=== PATIENT | female | born 1975 | race Caucasian/White ===

== ENCOUNTER 2016-05-09 18:23 | Emergency (ER) | payer OTHER ==
[2016-05-09 18:40] VITALS: BP 147/91; PULSE 90; TEMP 97.7; BMI 41.5
--- NOTE | 2016-05-09 19:36 | PDOC ---
History of Present Illness - General Chief Complaint: Sore Throat Stated Complaint: ASTHMA/SORE THROAT/CHEST TIGHTNESS Time Seen by Provider: 05/09/16 18:55 History Source: Patient Exam Limitations: No Limitations - History of Present Illness Initial Comments: 05/09/16 19:31 41-year-old female with history of asthma comes to the ER today with complaints of intermittent wheezing, cough, sore throat, and rib pain secondary to coughing. Patient states has been using her inhaler and treatment as needed but states symptoms continue shortly after usage. She denies fever, chills, shortness of breath, recent travel, recent illness, recent vaccinations, headache, abdominal pain or nausea. Patient denies smoking history or smokers in the home. Timing/Duration: reports: other (3 days) Severity: reports: mild, moderate Possible Cause: Yes: occasional episodes Modifying Factors: improves with: albuterol inhaler, albuterol nebulizer, coughing Associated Symptoms: reports: cough, sore throat, wheezing Past History - Past Medical History Allergies/Adverse Reactions: Allergies Allergy/AdvReac Type Severity Reaction Status Date / Time gatifloxacin [From Tequin] Allergy Verified 05/09/16 18:40 Home Medications: Ambulatory Orders Hydroxychloroquine Sulfate [Plaquenil] 200 mg PO DAILY 05/15/15 Albuterol 0.083% Nebulizer Mattie [Ventolin 0.083% Nebulizer Soln -] 1 neb NEB Q4H #60 vial 10/20/15 Albuterol Sulfate Inhaler - [Ventolin HFA Inhaler -] 1 - 2 inh PO Q4H #1 inhaler 01/02/16 Budesonide/Formeterol Fumarate [SYMBICORT 160/4.5mcg -] 1 inh PO DAILY #1 cannister 01/02/16 Prednisone [Deltasone -] 20 mg PO BID #10 tablet 01/02/16 Azithromycin [Zithromax Tri-Wenceslao (3 DAYS) -] 500 mg PO DAILY #3 tablet 05/09/16 Prednisone [Deltasone -] 40 mg PO DAILY #8 tablet 05/09/16 Asthma: Yes Diabetes: No Other medical history: LUPUS - Immunization History Immunization Up to Date: Yes - Psycho/Social/Smoking Cessation Hx Anxiety: No Suicidal Ideation: No Smoking History: Never smoked Have you smoked in the past 12 months: No Hx Alcohol Use: No Drug/Substance Use Hx: No Substance Use Type: None Patient Lives Alone: No Lives with/in: spouse/SO Respiratory Specific PMHX - Complaint Specific PMHX Angina: No Bronchitis: Yes Pulmonary Embolus: No TB (Tuberculosis): No Review of Systems - Review of Systems Able to Perform ROS?: Yes Constitutional: No: Symptoms Reported HEENTM: Yes: Throat Pain Respiratory: Yes: Cough, Wheezing Cardiac (ROS): No: Symptoms Reported ABD/GI: No: Symptoms Reported : No: Symptoms Reported Musculoskeletal: No: Symptoms Reported Integumentary: No: Symptoms Reported Neurological: No: Symptoms reported *Physical Exam - Vital Signs Last Vital Signs Temp Pulse Resp BP Pulse Ox 97.7 F 90 20 147/91 99 05/09/16 18:38 05/09/16 18:38 05/09/16 18:38 05/09/16 18:38 05/09/16 18:38 - Physical Exam General Appearance: Yes: Nourished, Appropriately Dressed. No: Apparent Distress HEENT: positive: EOMI, MARNIE, TMs Normal, Pharynx Normal. negative: Pale Conjunctivae, Pharyngeal Erythema Neck: positive: Supple Respiratory/Chest: positive: Wheezing (mild expiratory to bronchial region). negative: Respiratory Distress, Accessory Muscle Use Cardiovascular: positive: Regular Rhythm, Regular Rate. negative: Murmur Gastrointestinal/Abdominal: positive: Soft. negative: Tenderness Extremity: positive: Normal Capillary Refill Integumentary: positive: Normal Color, Warm, Moist Neurologic: positive: Motor Strength 5/5 (ambulatory) Medical Decision Making - Medical Decision Making 05/09/16 19:33 Patient with history of asthma presents with wheezing, cough and sore throat. Patient with likely acute wheezy bronchitis/asthma exacerbation. Patient be discharged home with azithromycin and prednisone since she has adequate supply of albuterol at home. *DC/Admit/Observation/Transfer Diagnosis at time of Disposition: Acute wheezy bronchitis Asthma Qualifiers: Asthma severity: mild intermittent Asthma complication type: with acute exacerbation Qualified Code(s): J45.21 - Mild intermittent asthma with (acute) exacerbation - Discharge Dispostion Disposition: HOME Condition at time of disposition: Good - Prescriptions Prescriptions: Prednisone [Deltasone -] 40 mg PO DAILY #8 tablet Azithromycin [Zithromax Tri-Wenceslao (3 DAYS) -] 500 mg PO DAILY #3 tablet - Referrals Referrals: Deni Blakely MD [Primary Care Provider] - - Patient Instructions Printed Discharge Instructions: DI for Acute Bronchitis, DI for Asthma -- Adult Additional Instructions: Please take azithromycin and prednisone as prescribed until completed. Please use your inhaler as needed. Follow-up with your PCP. Otherwise return to ED if symptoms worsen
== END 2016-05-09 19:41 | disposition home or self-care (01) ==
LOC: JERFT 18:23
DX: J45.21 Mild intermittent asthma with (acute) exacerbation (principal); J20.9 Acute bronchitis, unspecified
CPT/HCPCS: 99281-25

== ENCOUNTER 2016-06-29 18:31 | Emergency (ER) | payer OTHER ==
[2016-06-29 18:34] VITALS: BP 142/73; PULSE 79; TEMP 97.9; BMI 44.6
--- NOTE | 2016-06-29 18:39 | PDOC ---
Rapid Medical Evaluation Chief Complaint: Sore Throat Time Seen by Provider: 06/29/16 18:37 Medical Evaluation: Allergies Allergy/AdvReac Type Severity Reaction Status Date / Time gatifloxacin [From Tequin] Allergy Verified 06/29/16 18:32 Vital Signs Temp Pulse Resp BP Pulse Ox 97.9 F 79 18 142/73 100 06/29/16 18:33 06/29/16 18:33 06/29/16 18:33 06/29/16 18:33 06/29/16 18:33 06/29/16 18:38 41 year old female with a history of asthma, c/s x 1 presenting with sore throat since yesterday. V/s unremarkable. -Rapid strepo FT for further evaluation
[2016-06-29] MEDS ORDERED: ALBUTEROL SO4 2.5/IPRATROPIUM 0.5 INH SOL 3 ML VIAL.NEB. NEB ONE (19:05)
--- NOTE | 2016-06-29 19:09 | PDOC ---
History of Present Illness - General Chief Complaint: Sore Throat Stated Complaint: SORE THROAT Time Seen by Provider: 06/29/16 18:37 History Source: Patient Exam Limitations: No Limitations - History of Present Illness Initial Comments: 06/29/16 19:05 My chief complaint sore throat radiates slightly to her left ear dry cough since last night History of present illness: Patient is a 41-year-old female with a history of asthma here complaining of sore throat since last night that radiates slightly to her left ear with a dry cough. Patient denies any shortness of breath or wheezing however patient was wheezing in exam room and patient then was able to feel and hear the wheezing. Patient denies being around anyone sick. Patient denies any fever or any difficulty swallowing or breathing. 06/29/16 19:08 06/29/16 20:01 Timing/Duration: intermittent Severity: mild Associated Symptoms: reports: cough (dry ), other (sore throat). denies: chest pain, shortness of breath Past History - Past Medical History Allergies/Adverse Reactions: Allergies Allergy/AdvReac Type Severity Reaction Status Date / Time gatifloxacin [From Tequin] Allergy Verified 06/29/16 18:32 Home Medications: Ambulatory Orders Hydroxychloroquine Sulfate [Plaquenil] 200 mg PO DAILY 05/15/15 Albuterol 0.083% Nebulizer Mattie [Ventolin 0.083% Nebulizer Soln -] 1 neb NEB Q4H #60 vial 10/20/15 Albuterol Sulfate Inhaler - [Ventolin HFA Inhaler -] 1 - 2 inh PO Q4H #1 inhaler 01/02/16 Budesonide/Formeterol Fumarate [SYMBICORT 160/4.5mcg -] 1 inh PO DAILY #1 cannister 01/02/16 Prednisone [Deltasone -] 20 mg PO BID #10 tablet 01/02/16 Azithromycin [Zithromax Tri-Wenceslao (3 DAYS) -] 500 mg PO DAILY #3 tablet 05/09/16 Prednisone [Deltasone -] 40 mg PO DAILY #8 tablet 05/09/16 Asthma: Yes Diabetes: No - Immunization History Immunization Up to Date: Yes - Psycho/Social/Smoking Cessation Hx Anxiety: No Suicidal Ideation: No Smoking History: Never smoked Have you smoked in the past 12 months: No Information on smoking cessation initiated: No Hx Alcohol Use: No Drug/Substance Use Hx: No Substance Use Type: None Review of Systems - Review of Systems Able to Perform ROS?: Yes Constitutional: No: Symptoms Reported HEENTM: Yes: Ear Pain (left ear ), Throat Pain Respiratory: Yes: Cough, Wheezing (now left sided ). No: Shortness of Breath, SOB with Exertion, SOB at Rest, Stridor, Productive cough Cardiac (ROS): No: Symptoms Reported ABD/GI: No: Symptoms Reported : No: Symptoms Reported Musculoskeletal: No: Symptoms Reported Integumentary: No: Symptoms Reported Neurological: No: Symptoms reported *Physical Exam - Vital Signs Last Vital Signs Temp Pulse Resp BP Pulse Ox 97.9 F 79 18 142/73 100 06/29/16 18:33 06/29/16 18:33 06/29/16 18:33 06/29/16 18:33 06/29/16 18:33 - Physical Exam General Appearance: Yes: Appropriately Dressed HEENT: positive: TMs Normal, Pharyngeal Erythema, Tonsillar Erythema (with no tonsillar uvular deviation ). negative: Nasal Congestion, Rhinorrhea, Sinus Tenderness, Orbits Neck: positive: Lymphadenopathy (L). negative: Lymphadenopathy (R) Respiratory/Chest: positive: Lungs Clear, Normal Breath Sounds (rt. sided, ), Wheezing (slight expiratory wheeze left sided ), Other (lungs CTA b/l after neb) . negative: Chest Tender, Respiratory Distress, Decreased Breath Sounds, Crackles, Rales, Rhonchi, Stridor Cardiovascular: positive: Regular Rhythm, Regular Rate, S1, S2 Integumentary: positive: Normal Color Neurologic: positive: Alert, Responsive Medical Decision Making - Medical Decision Making 06/29/16 19:09 Patient is a 41-year-old female with a history of asthma here complaining of sore throat since last night that radiates slightly to her left ear with a dry cough. Patient denies any shortness of breath or wheezing however patient was wheezing in exam room and patient then was able to feel and hear the wheezing. Patient denies being around anyone sick. Patient denies any fever or any difficulty swallowing or breathing. 06/29/16 19:0 Pharyngitis, tonsillitis rule out strep throat Left sided wheeze expiratory asthma exacerbation Dry cough Plan: DuoNeb Throat C&S rapid negative 06/29/16 20:01 *DC/Admit/Observation/Transfer Diagnosis at time of Disposition: Asthma exacerbation Pharyngitis Qualifiers: Pharyngitis/tonsillitis etiology: unspecified etiology Qualified Code(s): J02.9 - Acute pharyngitis, unspecified - Discharge Dispostion Disposition: HOME Condition at time of disposition: Stable - Referrals Referrals: Deni Blakely MD [Primary Care Provider] - - Patient Instructions Additional Instructions: Follow up with your primary care provider within the next few days use your nebulizer as previously ordered You may purchase Cepacol throat lozengers you may purchase [id number] and use as directed Return to emergency room if symptoms worsen any difficulty breathing or swallowing Patient voiced understanding of discharge instructions and all questions were answered
== END 2016-06-29 20:29 | disposition home or self-care (01) ==
LOC: JERFT 18:31
PROC: 3E0F7GC Introduction of Other Therapeutic Substance into Respiratory Tract, Via Natural or Artificial Opening (ICD-10-PCS; principal; 2016-06-29)
DX: J45.901 Unspecified asthma with (acute) exacerbation (principal); J02.9 Acute pharyngitis, unspecified
CPT/HCPCS: 87070; 87430; 94640; 99281-25

== ENCOUNTER 2016-10-31 16:30 | Emergency (ER) | payer OTHER ==
[2016-10-31 16:35] VITALS: BP 140/79; PULSE 78; TEMP 98.4; BMI 43.7
--- NOTE | 2016-10-31 17:43 | PDOC ---
History of Present Illness - General Chief Complaint: Cold Symptoms Stated Complaint: COLD SYMPTOMS Time Seen by Provider: 10/31/16 17:13 - History of Present Illness Initial Comments: 10/31/16 17:36 CHIEF COMPLAINT: HISTORY OF PRESENT ILLNESS: 41 yo F with hx of lupus presents to [facility] with cough x 3 days and sore throat. No recent travel or sick contacts. PAST MEDICAL HISTORY: Denies past medical history FAMILY HISTORY: Denies SOCIAL HISTORY: Denies tobacco, alcohol, illicit drug use. SURGICAL HISTORY: Denies ALLERGIES: gatifloxacin REVIEW OF SYSTEMS General/Constitutional: Denies fever or chills. Denies weakness, weight change. HEENT: Denies change in vision. Denies ear pain or discharge. Denies sore throat. Cardiovascular: Denies chest pain or shortness of breath. Respiratory: Cough x 3 days with "green stuff." Gastrointestinal: Denies nausea, vomiting, diarrhea. Musculoskeletal: Denies joint or muscle swelling or pain. Denies neck or back pain. Skin and breasts: Denies rash. Neurologic: Denies headache, vertigo, loss of consciousness, or loss of sensation. PHYSICAL EXAM General Appearance: Well-appearing, appropriately dressed. No apparent distress. HEENT: EOMI, PERRLA, normal ENT inspection, normal voice, TMs normal, pharynx normal. No conjunctival pallor. No photophobia, scleral icterus. Neck: Supple. Trachea midline. No tenderness, rigidity, carotid bruit, stridor , lymphadenopathy, or thyromegaly. Respiratory/Chest: Lungs CTAB. Cardiovascular: RRR. S1, S2. No JVD, murmur, bradycardia, tachycardia. Vascular Pulses: Dorsalis-Pedis (R): 2+, Dorsalis-Pedis (L): 2+ Gastrointestinal/Abdominal: Normal bowel sounds. Abdomen soft, non-distended. No tenderness or rebound tenderness. No organomegaly, pulsatile mass, guarding , hernia, hepatomegaly, splenomegaly. Lymphatic: No adenopathy, tenderness. Musculoskeletal/Extremities: Normal inspection. FROM of all extremities, normal capillary refill. Pelvis Stable. No CVA tenderness. No tenderness to extremities, pedal edema, swelling, erythema or deformity. Integumentary: Appropriate color, dry, warm. No cyanosis, erythema, jaundice or rash Neurologic: tufting supervisor II-XII intact. Fully oriented, alert. Appropriate mood/affect. Motor strength 5/5. No appreciable EOM palsy, facial droop or sensory deficit. Past History - Past Medical History Allergies/Adverse Reactions: Allergies Allergy/AdvReac Type Severity Reaction Status Date / Time gatifloxacin [From Tequin] Allergy Verified 10/31/16 16:35 Home Medications: Ambulatory Orders Dextromethorphan HBr [Robitussin] 15 mg PO Q6H PRN #28 capsule 10/31/16 Guaifenesin/Codeine Phosphate [Cheratussin AC Syrup] 15 ml PO HS PRN #118 ml MDD 15ml 10/31/16 Phenol/Glycerin [Chloraseptic Max [place]] 2 spray MM Q4H PRN #1 bottle 10/31/16 Asthma: Yes Diabetes: No Other medical history: LUPUS - Immunization History Immunization Up to Date: Yes - Psycho/Social/Smoking Cessation Hx Anxiety: No Suicidal Ideation: No Smoking History: Never smoked Have you smoked in the past 12 months: No Information on smoking cessation initiated: No Hx Alcohol Use: No Drug/Substance Use Hx: No Substance Use Type: None Respiratory Specific PMHX - Complaint Specific PMHX Angina: No Bronchitis: Yes Pulmonary Embolus: No TB (Tuberculosis): No *Physical Exam - Vital Signs Last Vital Signs Temp Pulse Resp BP Pulse Ox 98.4 F 78 18 140/79 98 10/31/16 16:32 10/31/16 16:32 10/31/16 16:32 10/31/16 16:32 10/31/16 16:32 Medical Decision Making - Medical Decision Making 10/31/16 17:39 41 yo F with hx of lupus presents to [facility] w/ cough x 3 days. Clinical presentation consistent with viral bronchitis. -Cheratussin sent to pharm -Chloraseptic spray *DC/Admit/Observation/Transfer Diagnosis at time of Disposition: Bronchitis - Discharge Dispostion Disposition: HOME Condition at time of disposition: Stable Admit: No - Prescriptions Prescriptions: Guaifenesin/Codeine Phosphate [Cheratussin AC Syrup] 15 ml PO HS PRN #118 ml MDD 15ml PRN Reason: Cough Phenol/Glycerin [Chloraseptic Max [place]] 2 spray MM Q4H PRN #1 bottle PRN Reason: throat pain Dextromethorphan HBr [Robitussin] 15 mg PO Q6H PRN #28 capsule PRN Reason: Cough - Referrals Referrals: Isis Acosta [Primary Care Provider] - - Patient Instructions Printed Discharge Instructions: DI for Acute Bronchitis Additional Instructions: Please take medications as prescribed. Follow up with your primary care doctor if symptoms persist past 5 days. If you experience any fever, vomiting, diarrhea, chills, neck stiffness, or any new or worsening symptoms, please return to the ER. - Post Discharge Activity
== END 2016-10-31 18:14 | disposition home or self-care (01) ==
LOC: JERFT 16:30
DX: J20.8 Acute bronchitis due to other specified organisms (principal); J45.909 Unspecified asthma, uncomplicated
CPT/HCPCS: 99281-25

== ENCOUNTER 2016-11-09 12:33 | Emergency (ER) | payer OTHER ==
[2016-11-09 12:46] VITALS: BP 131/77; PULSE 81; TEMP 98.1; BMI 43.2
--- NOTE | 2016-11-09 13:21 | PDOC ---
History of Present Illness - General History Source: Patient Exam Limitations: No Limitations - History of Present Illness Initial Comments: 11/09/16 13:28 The patient is a 41 year old female with a significant past medical history of asthma and lupus with no recent flare ups who presents to the ED with a continual cough and congestion to the mid chest for a week. Patient denies fever or chills. Denies recent travel. Patient reports recent illness and was seen in the ED 1 week for present symptoms. She states her chest congestion and cough is not improving after receiving cough medicine. Patient notes she did not follow up with her PCP, Dr. Isis Tenorio. She reports using her inhaler with relief of present symptoms. <Summer Benavides - Last Filed: 11/09/16 13:39> <Amrita Jackson - Last Filed: 11/09/16 13:47> - General Chief Complaint: Cold Symptoms Stated Complaint: CONGESTED Time Seen by Provider: 11/09/16 13:10 Past History <Summer Benavides - Last Filed: 11/09/16 13:39> - Past Medical History Asthma: Yes Diabetes: No - Immunization History Immunization Up to Date: Yes - Psycho/Social/Smoking Cessation Hx Anxiety: No Suicidal Ideation: No Smoking History: Current some day smoker Have you smoked in the past 12 months: No Number of Cigarettes Smoked Daily: 0 Information on smoking cessation initiated: No Hx Alcohol Use: No Drug/Substance Use Hx: No Substance Use Type: Marijuana <Amrita Jackson - Last Filed: 11/09/16 13:47> - Past Medical History Allergies/Adverse Reactions: Allergies Allergy/AdvReac Type Severity Reaction Status Date / Time gatifloxacin [From Tequin] Allergy Verified 11/09/16 12:46 Home Medications: Ambulatory Orders Dextromethorphan HBr [Robitussin] 15 mg PO Q6H PRN #28 capsule 10/31/16 Guaifenesin/Codeine Phosphate [Cheratussin AC Syrup] 15 ml PO HS PRN #118 ml MDD 15ml 10/31/16 Phenol/Glycerin [Chloraseptic Max [place]] 2 spray MM Q4H PRN #1 bottle 10/31/16 Respiratory Specific PMHX - Complaint Specific PMHX Angina: No Bronchitis: Yes Pulmonary Embolus: No TB (Tuberculosis): No <Amrita Jackson - Last Filed: 11/09/16 13:47> Review of Systems - Review of Systems Respiratory: Yes: Cough, Productive cough, Other (chest congestion ) <Summer Benavides - Last Filed: 11/09/16 13:39> - Review of Systems Constitutional: No: Symptoms Reported HEENTM: No: Throat Pain, Difficulty Swallowing Respiratory: Yes: Cough, Productive cough. No: Orthopnea, Shortness of Breath, Wheezing Cardiac (ROS): No: Chest Pain, Edema ABD/GI: No: Nausea Integumentary: No: Symptoms Reported Neurological: No: Headache <Amrita Jackson - Last Filed: 11/09/16 13:47> *Physical Exam - Vital Signs Last Vital Signs Temp Pulse Resp BP Pulse Ox 98.1 F 81 18 131/77 99 11/09/16 12:39 11/09/16 12:39 11/09/16 12:39 11/09/16 12:39 11/09/16 12:39 - Physical Exam Comments: 11/09/16 13:28 GENERAL: Well developed, well nourished. Awake and alert. No acute distress. HEENT:no erythema, no exudates, 2+ tonsils Normocephalic, atraumatic. EOMI. No conjunctival pallor. Sclera are non- icteric. Moist mucous membranes. . NECK: Supple. Full ROM. No JVD. Carotid pulses 2+ and symmetric. No thyromegaly. No lymphadenopathy. CARDIOVASCULAR: Regular rate and rhythm. No murmurs, rubs, or gallops. PULMONARY: No evidence of respiratory distress. Lungs clear to auscultation bilaterally. No wheezing, rales or rhonchi. ABDOMINAL: Soft. Non-tender. Non-distended. No rebound or guarding. No organomegaly. MUSCULOSKELETAL Normal range of motion at all joints. No bony deformities or tenderness. EXTREMITIES: No cyanosis. No clubbing. No edema. SKIN: Warm and dry. Normal capillary refill. No rashes. No jaundice. NEUROLOGICAL: Alert, awake, appropriate. Normal speech. Toes are down-going bilaterally. Gait is normal without ataxia. PSYCHIATRIC: Cooperative. Good eye contact. Appropriate mood and affect. <Summer Benavides - Last Filed: 11/09/16 13:39> - Vital Signs Last Vital Signs Temp Pulse Resp BP Pulse Ox 98.1 F 81 18 131/77 99 11/09/16 12:39 11/09/16 12:39 11/09/16 12:39 11/09/16 12:39 11/09/16 12:39 <Amrita Jackson - Last Filed: 11/09/16 13:47> Medical Decision Making - Medical Decision Making 11/09/16 13:43 Patient was seen and examined by me with dictation done by medical videographer. Patient on exam had clear lungs to auscultation without wheezing or dyspnea. Due to patient's history of lupus and history of asthma which she states uses her albuterol inhaler and her symbicort as prescribed with minimal improvement. Patient will be prescribed azithromycin along with prednisone. <Amrita Jackson - Last Filed: 11/09/16 13:47> *DC/Admit/Observation/Transfer <Summer Benavides - Last Filed: 11/09/16 13:39> <Amrita Jackson - Last Filed: 11/09/16 13:47> Diagnosis at time of Disposition: Asthmatic bronchitis Qualifiers: Asthma severity: mild intermittent Asthma complication type: with acute exacerbation Qualified Code(s): J45.21 - Mild intermittent asthma with (acute) exacerbation - Discharge Dispostion Disposition: HOME - Referrals Referrals: Isis Acosta [Primary Care Provider] - - Patient Instructions Printed Discharge Instructions: DI for Acute Bronchitis Additional Instructions: Please take medication as prescribed until completed. Please follow-up with your PCP and/or return to ED if symptoms worsen.
== END 2016-11-09 13:53 | disposition home or self-care (01) ==
LOC: JERFT 12:33
DX: J45.21 Mild intermittent asthma with (acute) exacerbation (principal); F17.210 Nicotine dependence, cigarettes, uncomplicated
CPT/HCPCS: 99281-25

== ENCOUNTER → 2016-11-21 | Emergency (ER) | payer OTHER ==
[2016-11-21 20:43] VITALS: BP 136/78; PULSE 79; TEMP 98.5; BMI 46.0
--- NOTE | 2016-11-21 21:12 | PDOC ---
Attending Attestation - [facility] HPI: 11/22/16 00:25 The patient is a 41 year old female with a significant past medical history of asthma and lupus, presenting to the Emergency Department right side chest pain s /p slip and fall last night. The patient reports that she went to shower last night while intoxicated when she slipped and fell forward. As per the patients boyfriend, the patient did not hit and corners or sharp edges, but hit the floor. The patient denies loss of consciousness or head trauma. She reports pain at her right chest and side, and abdominal pain at her RUQ which has worsened since last night. She has not taken any medication for the pain. The patient denies palpitations, or diaphoresis. Patient denies shortness of breath, or difficulty breathing. Patient denies nausea, vomiting, and diarrhea. Patient denies headache, or change in vision. Social Hx: Admits to marijuana use, and alcohol use. GENERAL/CONSTITUTIONAL: No fever or chills. No weakness. HEAD, EYES, EARS, NOSE AND THROAT: No change in vision. No ear pain or discharge. No sore throat. GASTROINTESTINAL: + RUQ pain. No nausea, vomiting, diarrhea or constipation. GENITOURINARY: No dysuria, frequency, or change in urination. CARDIOVASCULAR: + right side chest pain. No shortness of breath. RESPIRATORY: No cough, wheezing, or hemoptysis. MUSCULOSKELETAL: + right side pain. No joint or muscle swelling or pain. No neck or back pain. SKIN: No rash NEUROLOGIC: No headache, vertigo, loss of consciousness, or change in strength/ sensation. ENDOCRINE: No increased thirst. No abnormal weight change. HEMATOLOGIC/LYMPHATIC: No anemia, easy bleeding, or history of blood clots. ALLERGIC/IMMUNOLOGIC: No hives or skin allergy. - Physicial Exam PE: 11/22/16 00:33 GENERAL: Awake, alert, and fully oriented, in no acute distress HEAD: No signs of trauma EYES: PERRLA, EOMI, sclera anicteric, conjunctiva clear ENT: Auricles normal inspection, hearing grossly normal, nares patent, oropharynx clear without exudates. Moist mucosa NECK: Normal ROM, supple, no lymphadenopathy, JVD, or masses LUNGS: Mild tenderness to right lower rib margin in the mid axillary line. Breath sounds equal, clear to auscultation bilaterally. No wheezes, and no crackles HEART: Regular rate and rhythm, normal S1 and S2, no murmurs, rubs or gallops ABDOMEN: Mild epigastric pain. Soft, normoactive bowel sounds. No guarding, no rebound. No masses EXTREMITIES: Normal range of motion, no edema. No clubbing or cyanosis. No cords, erythema, or tenderness NEUROLOGICAL: Cranial nerves II through XII grossly intact. Normal speech, normal gait SKIN: Warm, Dry, normal turgor, no rashes or lesions noted. - Medical Decision Making 11/22/16 00:32 XRay of Ribs As reviewed by Dr. Sheron Vasquez Patient Name: Niyah Corrales THIS IS A PRELIMINARY REPORT FROM [facility] IMAGES: 5 EXAM DATE AND TIME: 2016-11-21 23:43:27.0 EXAM: X-RAY RIGHT RIBS No acute fracture. No right pneumothorax, hemothorax or lung contusion. Hepatomegaly. Chest XRay As reviewed by Dr. Sheron Vasquez Patient Name: Niyah Corrales THIS IS A PRELIMINARY REPORT FROM [facility] IMAGES: 3 EXAM DATE AND TIME: 2016-11-21 23:36:14.0 EXAM: X-RAY CHEST No focal lung consolidation or pleural effusions. Scattered goldy os scarring and probable calcified granulomas upper lobes. Cardiomediastinal silhouette unremarkable. Bones unremarkable. 11/22/16 00:30 Documentation prepared by Maria Victoria Alston, acting as medical coding manager for Sona Zhou MD. <Maria Victoria Alston - Last Filed: 11/22/16 00:34> - Resident Resident Name: Katy Peres - ED Attending Attestation I have performed the following: I have examined & evaluated the patient, The case was reviewed & discussed with the resident, I agree w/resident's findings & plan, Exceptions are as noted - Medical Decision Making Pt was sent for rib series, no signs of fracture. There are no signs of trauma- no ecchymosis to the skin. Will not pursue further workup. <Sona Zhou - Last Filed: 11/22/16 02:19>
--- NOTE | 2016-11-21 21:30 | PDOC ---
History of Present Illness - General Chief Complaint: Chest Pain Stated Complaint: FELL Time Seen by Provider: 11/21/16 20:47 History Source: Patient, Significant Other Exam Limitations: No Limitations - History of Present Illness Initial Comments: This is a 41 yo female with h/o SLE and asthma who presents with right lower chest and right upper abdominal pain one day s/p falling in the shower. She notes having drank a bottle of hard liquor last night and then slipping and falling in the shower. She denies hitting her head or losing consciousness, but also cannot recall the exact events of the fall, how she landed, or much of what happened for the remainder of the night. Her significant other states that he found her on the bathroom floor and helped her to bed. She awoke this morning with pain in the right ribs, right abdomen, and right upper back which is 8/10, worse with movement, constant, and feels like pressure. It does not change after she eats. She additionally hit her nose during the fall and has a small cut and nasal swelling. She denies any dizziness, headache, nausea, vomiting, diarrhea, black/bloody or white stool, sweats, radiation of the pain down an arm, blood in the urine, or burning on urination. Past History - Past Medical History Allergies/Adverse Reactions: Allergies Allergy/AdvReac Type Severity Reaction Status Date / Time gatifloxacin [From Tequin] Allergy Verified 11/21/16 20:41 Home Medications: Ambulatory Orders Albuterol Sulfate Inhaler - [Ventolin Hfa Inhaler -] 1 - 2 inh PO Q4H PRN Asthma: Yes Diabetes: No Other medical history: Lupus - Immunization History Immunization Up to Date: Yes - Psycho/Social/Smoking Cessation Hx Anxiety: No Suicidal Ideation: No Smoking History: Never smoked Have you smoked in the past 12 months: No Number of Cigarettes Smoked Daily: 0 Information on smoking cessation initiated: No Hx Alcohol Use: No Drug/Substance Use Hx: No Substance Use Type: Marijuana Review of Systems - Review of Systems Able to Perform ROS?: Yes Constitutional: No: Chills, Fever, Unexplained wgt Loss HEENTM: No: Nose Congestion, Throat Pain Respiratory: No: Cough, Shortness of Breath Cardiac (ROS): Yes: Other (left rib pain). No: Palpitations ABD/GI: Yes: Other (left upper abdominal pain). No: Constipated, Diarrhea, Nausea, Vomiting : No: Burning, Dysuria Musculoskeletal: No: Back Pain, Neck Pain Integumentary: No: Bruising, Rash Neurological: No: Headache, Numbness, Tingling, Weakness, Dizziness Endocrine: No: Unexplained Weight Gain, Unexplained Weight Loss *Physical Exam - Vital Signs Last Vital Signs Temp Pulse Resp BP Pulse Ox 98.5 F 79 20 136/78 99 11/21/16 20:41 11/21/16 20:41 11/21/16 20:41 11/21/16 20:41 11/21/16 20:41 - Physical Exam General Appearance: Yes: Nourished, Appropriately Dressed, Obese, Other ( pleasant and conversive in full sentences, accompanied by supportive-appearing partner at the bedside). No: Apparent Distress HEENT: positive: EOMI, MARNIE, Normal Voice, Hearing Grossly Normal, Other (no farmer sign, no raccoon eyes, no hemotympanum, no nasal septal hematoma, mild nasal bridge swelling bilaterallly with 1.5 cm transverse superficial laceration with scab). negative: Scleral Icterus (R), Scleral Icterus (L), Nasal Congestion Neck: positive: Trachea midline, Supple. negative: Tender, Rigid Respiratory/Chest: positive: Chest Tender (right lower costal margin from mid- clavicular line extending to mid-axillary line on the right without ecchymoses or abrasions or other lesions), Lungs Clear, Normal Breath Sounds. negative: Respiratory Distress, Crackles, Rhonchi, Stridor, Wheezing Cardiovascular: positive: Regular Rhythm, Regular Rate. negative: Murmur Gastrointestinal/Abdominal: positive: Normal Bowel Sounds, Soft. negative: Tender, Organomegaly, Pulsatile Mass, Guarding Musculoskeletal: positive: Normal Inspection. negative: Decreased Range of Motion, Vertebral Tenderness Extremity: positive: Normal Capillary Refill, Normal Inspection, Normal Range of Motion. negative: Tender, Cyanosis Integumentary: positive: Normal Color, Dry, Warm. negative: Erythema, Rash, Bruising Neurologic: positive: collection manager II-XII NML intact, Fully Oriented, Alert, Normal Mood/ Affect, Normal Response, Motor Strength 5/5, Finger to Nose (normal), Other ( normal Romberg, no pronator drift, normal gait). negative: Confused, Disoriented ED Treatment Course - LABORATORY CBC & Chemistry Diagram: 11/21/16 21:52 11/21/16 21:52 Medical Decision Making - Medical Decision Making 41 yo female presents the night after falling in the bathroom onto her right trunk. No difficulty breathing, hematuria, significant abdominal pain, obvious deformity, and no LOC. Exam without e/o trauma to HEENT or chest/abdomen. Ordered is CBCD, CMP, lipase, hCG, UA, CXR, right rib xray, Percocet for pain. Pain is well-controlled with one Percocet. hCG is negative, CBCD with mild anemia, CMP unremarkable, lipase neg. UA with 3+ blood but the patient has no CVA tenderness. CXR and right rib xray without e/o rib fracture, pneumothorax, pneumoperitoneum , etc. She is appropriate for outpatient management with NSAID use. She and her partner are comfortable with the plan for discharge home. She will take Motrin prn pain and use cold compress. They are counseled on return precautions and will return to ED for new/worse sxs. *DC/Admit/Observation/Transfer Diagnosis at time of Disposition: Rib contusion Qualifiers: Encounter type: initial encounter Laterality: right Qualified Code(s): S20.211A - Contusion of right front wall of thorax, initial encounter - Discharge Dispostion Disposition: HOME Condition at time of disposition: Stable Admit: No - Referrals Referrals: Isis Acosta [Primary Care Provider] - - Patient Instructions Printed Discharge Instructions: DI for Rib Contusion Additional Instructions: You were seen tonight for a fall and rib pain. We did basic labs to make sure that your liver and kidneys are functioning, and that your blood cell levels were normal. The laboratories were essentially normal except you are a bit anemic. We took a chest x-ray to assess your heart and lungs, and there were no abnormalities. We also took a right rib x-ray to evaluate for a rib fracture, and we did not see any fracture. We also gave you Percocet which did help your pain while you were here in the department. Please take ibuprofen 400 mg every 6 hours for the pain and swelling. You can also use a cold compress to the area. Please follow up with your regular doctor, or return to the emergency room for any difficulty breathing, blood in the urine, worsening abdominal pain , or other new/worsening symptoms. - Attestations Physician Attestion: 11/22/16 00:32 I, Dr. Katy Peres, attest that this document has been prepared under my direction and personally reviewed by me in its entirety. I further attest, that it accurately reflects all work, treatment, procedures and medical decision -making performed by me.
[2016-11-21 22:02] LABS: BASOPHIL 0.6 % (0-2.0); EOSINOPHIL 2.4 % (0-4.5); MCH 27.4 pg (25.7-33.7); MCHC 32.6 g/dl (32.0-36.0); MEAN CELL VOLUME 84.2 fl (80-96); NEUTROPHILS 60.6 % (42.8-82.8); PLATELET COUNT 186 K/MM3 (134-434); RDW 15.5 % (11.6-15.6)
[2016-11-21 22:07] LABS: PH,URINE 6.5 (5.0-8.0); URINE APPEARANCE CLEAR; URINE BILIRUBIN NEGATIVE (NEGATIVE); URINE BLOOD 3+ (NEGATIVE); URINE COLOR LT. YELLOW; URINE GLUCOSE (UA) NEGATIVE (NEGATIVE); URINE KETONE NEGATIVE (NEGATIVE); URINE LEUK ESTERASE NEGATIVE (NEGATIVE); URINE NITRITE NEGATIVE (NEGATIVE); URINE PROTEIN NEGATIVE (NEGATIVE); URINE UROBILINOGEN 0.2 mg/dL (0.2-1.0)
[2016-11-21 22:10] LABS: URINE MUCUS RARE; URINE RBC 10 /hpf (0-3); URINE WBC 1 /hpf (3-5)
[2016-11-21 22:25] LABS: ANION GAP 5 (8-16); BILIRUBIN,TOTAL 0.4 mg/dL (0.2-1.0); CALCIUM 8.2 mg/dL (8.5-10.1); CO2 30 mmol/L (21-32); GLUCOSE,RANDOM 98 mg/dL (74-106); SGOT/AST 20 U/L (15-37); SGPT/ALT 28 U/L (12-78); TOT PROT 7.2 g/dl (6.4-8.2)
[2016-11-21 22:26] LABS: ALK PHOS 72 U/L (45-117)
== END | disposition home or self-care (01) ==
LOC: JER 20:22
DX: S20.211A Contusion of right front wall of thorax, initial encounter (principal); W18.2XXA Fall in (into) shower or empty bathtub, initial encounter; Y93.E1 Activity, personal bathing and showering; Y92.002 Bathroom of unspecified non-institutional (private) residence as the place of occurrence of the external cause; J45.909 Unspecified asthma, uncomplicated; M32.9 Systemic lupus erythematosus, unspecified
CPT/HCPCS: 36415; 71020-TC; 71101-TC-RT; 80053; 81003; 81015; 83690; 84703; 85025; 99283-25

== ENCOUNTER 2017-01-18 02:43 | Emergency (ER) | payer OTHER ==
--- NOTE | 2017-01-18 03:23 | PDOC ---
History of Present Illness - General History Source: Patient Exam Limitations: No Limitations - History of Present Illness Initial Comments: 01/18/17 03:41 42 y/o F with a PMHx of lupus presents to the ED with left shoulder pain s/p fall. Patient reports drinking approx. 5 beers tonight. She states she tripped and fell onto her left shoulder. She subsequently experienced left shoulder pain. She states it is worse with movement. She denies any other complaints. <Ela Bruner - Last Filed: 01/18/17 03:41> <Janet Kaminski - Last Filed: 01/18/17 04:30> - General Stated Complaint: ARM PAIN Time Seen by Provider: 01/18/17 03:19 Past History <Ela Bruner - Last Filed: 01/18/17 03:41> - Past Medical History Asthma: Yes Diabetes: No - Immunization History Immunization Up to Date: Yes - Suicide/Smoking/Psychosocial Hx Smoking History: Never smoked Have you smoked in the past 12 months: No Number of Cigarettes Smoked Daily: 0 Hx Alcohol Use: No Drug/Substance Use Hx: No Substance Use Type: Marijuana <Janet Kaminski - Last Filed: 01/18/17 04:30> - Past Medical History Allergies/Adverse Reactions: Allergies Allergy/AdvReac Type Severity Reaction Status Date / Time gatifloxacin [From Tequin] Allergy Verified 01/18/17 03:32 Home Medications: Ambulatory Orders Albuterol Sulfate Inhaler - [Ventolin Hfa Inhaler -] 1 - 2 inh PO Q4H PRN Review of Systems - Review of Systems Able to Perform ROS?: Yes Comments:: 01/18/17 03:41 GENERAL/CONSTITUTIONAL: No fever or chills. No weakness. HEAD, EYES, EARS, NOSE AND THROAT: No change in vision. No ear pain or discharge. No sore throat. CARDIOVASCULAR: No chest pain or shortness of breath. RESPIRATORY: No cough, wheezing, or hemoptysis. GASTROINTESTINAL: No nausea, vomiting, diarrhea or constipation. GENITOURINARY: No dysuria, frequency, or change in urination. MUSCULOSKELETAL: (+) left shoulder pain. No neck or back pain. SKIN: No rash NEUROLOGIC: No headache, vertigo, loss of consciousness, or change in strength/ sensation. ENDOCRINE: No increased thirst. No abnormal weight change. HEMATOLOGIC/LYMPHATIC: No anemia, easy bleeding, or history of blood clots. ALLERGIC/IMMUNOLOGIC: No hives or skin allergy. <Ela Bruner - Last Filed: 01/18/17 03:41> *Physical Exam - Vital Signs Last Vital Signs Temp Pulse Resp BP Pulse Ox 98.7 F 96 H 14 112/60 97 01/18/17 03:33 01/18/17 03:33 01/18/17 03:33 01/18/17 03:33 01/18/17 03:33 - Physical Exam Comments: 01/18/17 03:42 GENERAL: Awake, alert, and fully oriented, in no acute distress HEAD: No signs of trauma EYES: PERRLA, EOMI, sclera anicteric, conjunctiva clear ENT: Auricles normal inspection, hearing grossly normal, nares patent, oropharynx clear without exudates. Moist mucosa NECK: Normal ROM, supple, no lymphadenopathy, JVD, or masses LUNGS: Breath sounds equal, clear to auscultation bilaterally. No wheezes, and no crackles HEART: Regular rate and rhythm, normal S1 and S2, no murmurs, rubs or gallops ABDOMEN: Soft, nontender, normoactive bowel sounds. No guarding, no rebound. No masses EXTREMITIES: Tenderness to anterior left shoulder. Limited active ROM. Sensation intact. Neurovascularly distal intact, no edema. No clubbing or cyanosis. No cords, erythema. NEUROLOGICAL: Cranial nerves II through XII grossly intact. Normal speech, normal gait SKIN: Warm, Dry, normal turgor, no rashes or lesions noted. <Ela Bruner A - Last Filed: 01/18/17 03:41> Medical Decision Making - Medical Decision Making 01/18/17 04:27 a/p: 42yo female with L shoulder pain after a mechanical trip and fall -limited active ROM secondary to pain. -xray L shoulder -no deformity -FROM with passive ROM 01/18/17 04:28 re-eval: no fractures seen on xray -will give sling, toradol for pain. -pt taking a cab home -suspect shoulder contusion from the fall 01/18/17 04:28 discussed imaging results with the patient. pt stable for d/c to home at this time. <Janet Kaminski - Last Filed: 01/18/17 04:30> *DC/Admit/Observation/Transfer - Attestations Scribe Attestion: 01/18/17 03:43 Documentation prepared by Ela Bruner, acting as medical educator for Janet Kaminski DO. <Ela Bruner - Last Filed: 01/18/17 03:41> - Discharge Dispostion Admit: No - Attestations Physician Attestion: 01/18/17 04:30 I, Dr. Janet Kaminski DO, attest that this document has been prepared under my direction and personally reviewed by me in its entirety. I further attest, that it accurately reflects all work, treatment, procedures and medical decision -making performed by me. <Janet Kaminski - Last Filed: 01/18/17 04:30> Diagnosis at time of Disposition: Left shoulder pain - Discharge Dispostion Disposition: HOME Condition at time of disposition: Stable - Referrals Referrals: Isis Acosta [Primary Care Provider] - Xander Dickson MD [Staff Physician] - - Patient Instructions Printed Discharge Instructions: DI for Shoulder Pain Additional Instructions: Please follow up with your PMD. Please also follow up with the orthopedist. Please return to the ED with any further complaints. Ice 20min on and 20min off for pain.
[2017-01-18 03:35] VITALS: BP 112/60; PULSE 96; TEMP 98.7; BMI 46.0
[2017-01-18] MEDS ORDERED: KETOROLAC TROMETHAMINE 60 MG/2 ML VIAL IM ONE (04:25)
[2017-01-18] MEDS ORDERED: KETOROLAC TROMETHAMINE 60 MG/2 ML VIAL ONE (04:33)
== END 2017-01-18 04:47 | disposition home or self-care (01) ==
LOC: JER 02:43
PROC: 3E0233Z Introduction of Anti-inflammatory into Muscle, Percutaneous Approach (ICD-10-PCS; principal; 2017-01-18)
DX: M25.512 Pain in left shoulder (principal); M32.9 Systemic lupus erythematosus, unspecified; J45.909 Unspecified asthma, uncomplicated; Z88.8 Allergy status to other drugs, medicaments and biological substances; W01.0XXA Fall on same level from slipping, tripping and stumbling without subsequent striking against object, initial encounter; Y93.01 Activity, walking, marching and hiking
CPT/HCPCS: 73030-TC-LT; 84703; 96372; 99281-25; 99282-25

== ENCOUNTER 2017-01-23 20:58 | Emergency (ER) | payer OTHER ==
[2017-01-23 21:40] VITALS: BP 140/83; PULSE 81; TEMP 98.1; BMI 47.0
[2017-01-23] MEDS ORDERED: ACETAMINOPHEN 325 MG TABLET (FP) PO ONE (22:23)
[2017-01-23] MEDS ORDERED: ACETAMINOPHEN 325 MG TABLET (FP) ONE (22:25)
--- NOTE | 2017-01-23 23:12 | PDOC ---
History of Present Illness - General Chief Complaint: Pain Stated Complaint: LT SHOULDER PAIN Time Seen by Provider: 01/23/17 22:14 - History of Present Illness Initial Comments: 01/23/17 23:06 CHIEF COMPLAINT: L shoulder pain HISTORY OF PRESENT ILLNESS: 42 yo F with no significant past history presents to ED with L shoulder pain. Patient states she fell two days ago and was evaluated and discharged with negative x-ray. Patient states she also has "a little hip pain now" but reports being able to walk. PAST MEDICAL HISTORY: Denies past medical history FAMILY HISTORY: Denies SOCIAL HISTORY: Denies tobacco, alcohol, illicit drug use. SURGICAL HISTORY: Denies ALLERGIES: gatifloxacin REVIEW OF SYSTEMS General/Constitutional: Denies fever or chills. Denies weakness, weight change. HEENT: Denies change in vision. Denies ear pain or discharge. Denies sore throat. Cardiovascular: Denies chest pain or shortness of breath. Respiratory: Denies cough, wheezing, or hemoptysis. Gastrointestinal: Denies nausea, vomiting, diarrhea or constipation. Denies rectal bleeding. Genitourinary: Denies dysuria, frequency, or change in urination. Musculoskeletal: Left shoulder pain with movement "feels like it gets stuck sometimes."Denies neck or back pain. PHYSICAL EXAM General Appearance: Well-appearing, appropriately dressed. No apparent distress. HEENT: EOMI, PERRLA. No conjunctival pallor. No photophobia, scleral icterus. Respiratory/Chest: Lungs CTAB. Cardiovascular: RRR. S1, S2. Gastrointestinal/Abdominal: Normal bowel sounds. Abdomen soft, non-distended. No tenderness or rebound tenderness. No organomegaly, pulsatile mass, guarding , hernia, hepatomegaly, splenomegaly. Musculoskeletal/Extremities: Full ROM to L shoulder. Patient ambulating normally. Normal inspection. FROM of all extremities, normal capillary refill. Pelvis Stable. No CVA tenderness. No tenderness to extremities, pedal edema, swelling, erythema or deformity. Integumentary: Appropriate color, dry, warm. No cyanosis, erythema, jaundice or rash Neurologic: monument carver II-XII intact. Fully oriented, alert. Appropriate mood/affect. Motor strength 5/5. No appreciable EOM palsy, facial droop or sensory deficit. Past History - Past Medical History Allergies/Adverse Reactions: Allergies Allergy/AdvReac Type Severity Reaction Status Date / Time gatifloxacin [From Tequin] Allergy Verified 01/23/17 21:30 Home Medications: Ambulatory Orders Budesonide/Formeterol Fumarate [SYMBICORT 160/4.5mcg -] 1 inh PO DAILY 01/23/17 Ibuprofen [Motrin -] 600 mg PO TID #21 tablet 01/23/17 Asthma: Yes Diabetes: No - Immunization History Immunization Up to Date: Yes - Suicide/Smoking/Psychosocial Hx Smoking History: Never smoked Have you smoked in the past 12 months: No Number of Cigarettes Smoked Daily: 0 Information on smoking cessation initiated: No Hx Alcohol Use: No Drug/Substance Use Hx: No Substance Use Type: None *Physical Exam - Vital Signs Last Vital Signs Temp Pulse Resp BP Pulse Ox 98.1 F 81 18 140/83 100 01/23/17 21:26 01/23/17 21:26 01/23/17 21:26 01/23/17 21:26 01/23/17 21:26 ED Treatment Course - RADIOLOGY Radiology Studies Ordered: Category Date Time Status SHOULDER-LEFT [RAD] Stat Radiology 01/23/17 22:37 Taken - Medications Given in the ED: ED Medications Discontinued Medications Generic Name Dose Route Start Last Admin Trade Name Freq PRN Reason Stop Dose Admin Acetaminophen 650 mg 01/23/17 22:23 01/23/17 22:30 Tylenol - PO 01/23/17 22:24 650 mg ONCE ONE Administration Medical Decision Making - Medical Decision Making 01/23/17 23:10 42 yo F with no significant past history presents to ED with L shoulder pain. -650mg Tylenol Discussed with patient risks and benefits of x-ray, patient states she does not want hip x-ray. Awaiting urine preg prior to Toradol Toradol given. *DC/Admit/Observation/Transfer Diagnosis at time of Disposition: Hip pain, left Shoulder pain, left Qualifiers: Chronicity: acute Qualified Code(s): M25.512 - Pain in left shoulder - Discharge Dispostion Disposition: HOME Condition at time of disposition: Stable Admit: No - Prescriptions Prescriptions: Ibuprofen [Motrin -] 600 mg PO TID #21 tablet - Referrals Referrals: Isis Acosta [Primary Care Provider] - Xander Dickson MD [Staff Physician] - Humphrey Rodriguez MD [Staff Physician] - - Patient Instructions Printed Discharge Instructions: DI for Shoulder Pain, Help for Hip Pain Additional Instructions: Please take medications as prescribed. Follow up with orthopedics for further evaluation of your shoulder and hip pain; as discussed you may need an MRI to evaluate for any soft tissue injury. If you develop any difficulty walking, inability to move your shoulder, or any new or worsening symptoms, please return to the ER.
[2017-01-23] MEDS ORDERED: KETOROLAC TROMETHAMINE 60 MG/2 ML VIAL IM ONE (23:15)
[2017-01-23] MEDS ORDERED: KETOROLAC TROMETHAMINE 60 MG/2 ML VIAL ONE (23:39)
== END 2017-01-23 23:43 | disposition home or self-care (01) ==
LOC: JER 20:58
PROC: 3E0233Z Introduction of Anti-inflammatory into Muscle, Percutaneous Approach (ICD-10-PCS; principal; 2017-01-23)
DX: M25.552 Pain in left hip (principal); M32.9 Systemic lupus erythematosus, unspecified; J45.909 Unspecified asthma, uncomplicated; Z88.8 Allergy status to other drugs, medicaments and biological substances; W01.0XXA Fall on same level from slipping, tripping and stumbling without subsequent striking against object, initial encounter; Y93.01 Activity, walking, marching and hiking
CPT/HCPCS: 73030-TC-LT; 84703; 96372; 99282-25

== ENCOUNTER 2017-03-01 09:29 | Emergency (ER) | payer OTHER ==
[2017-03-01 09:37] VITALS: BP 114/79; PULSE 82; TEMP 98.2; BMI 46.0
[2017-03-01 10:45] LABS: PH,URINE 5.5 (5.0-8.0); URINE APPEARANCE CLEAR; URINE BILIRUBIN NEGATIVE (NEGATIVE); URINE BLOOD 3+ (NEGATIVE); URINE COLOR LT. YELLOW; URINE GLUCOSE (UA) NEGATIVE (NEGATIVE); URINE KETONE NEGATIVE (NEGATIVE); URINE NITRITE NEGATIVE (NEGATIVE); URINE PROTEIN NEGATIVE (NEGATIVE); URINE UROBILINOGEN 0.2 mg/dL (0.2-1.0)
--- NOTE | 2017-03-01 12:19 | PDOC ---
History of Present Illness - General Chief Complaint: Urinary Problem Stated Complaint: URINARY PROBLEM Time Seen by Provider: 03/01/17 09:59 History Source: Patient Exam Limitations: No Limitations - History of Present Illness Initial Comments: 03/01/17 12:13 Patient is a 42 y/o female, morbidly obese, presents to [facility] ER with dysuria, frequency and blood in urine today. Denies back pain or history of kidney stones. No fever, reports that she has had UTI in the past with same symptoms. Scheduled for gastric bypass on Tuesday. Past Medical History: [Denies]. Allergies: No known allergies Medications: [None] Family History: Non-contributory Social History: Denies smoking, alcohol use, or IVDU Review of Systems GENERAL/CONSTITUTIONAL: [No fever or chills. No weakness. No weight change.] HEAD, EYES, EARS, NOSE AND THROAT: [No change in vision. No ear pain or discharge. No sore throat. ] CARDIOVASCULAR: [No chest pain or shortness of breath.] RESPIRATORY: [No cough, wheezing, or hemoptysis.] GASTROINTESTINAL: [No nausea, vomiting, diarrhea or constipation. No rectal bleeding.] GENITOURINARY: [+ Dysuria, frequency and hematuria. ] MUSCULOSKELETAL: [No joint or muscle swelling or pain. No neck or back pain.] SKIN : [No rash or easy bruising.] Physical Exam: GENERAL: [The patient is awake, alert, and fully oriented, in no acute distress. ] EYES: [Pupils equal, round and reactive to light, extraocular movements intact, sclera anicteric, conjunctiva clear.] ENT: [Ears normal, nares patent, oropharynx clear without exudates. Moist mucous membranes. No uvula deviation] NECK: [Normal range of motion, supple without lymphadenopathy, JVD, or masses.] LUNGS: [Breath sounds equal, clear to auscultation bilaterally. No wheezes, and no crackles.] HEART: [Regular rate and rhythm, normal S1 and S2 without murmur, rub or gallop. ] ABDOMEN: [Mid supra pubic tenderness. No guarding, no rebound. No masses. No bruising or abrasions] MUSCULOSKELETAL: [Normal range of motion, no edema. No clubbing or cyanosis. No cords, erythema, or tenderness. No CVA Tenderness with palpation] SKIN: [Warm, Dry, normal turgor, no rashes or lesions noted.] Past History - Past Medical History Allergies/Adverse Reactions: Allergies Allergy/AdvReac Type Severity Reaction Status Date / Time gatifloxacin [From Tequin] Allergy Verified 03/01/17 09:34 Home Medications: Ambulatory Orders Budesonide/Formeterol Fumarate [SYMBICORT 160/4.5mcg -] 1 inh PO DAILY 01/23/17 Nitrofurantoin Monohyd/M-Cryst [Macrobid -] 100 mg PO BID #14 capsule 03/01/17 Asthma: Yes COPD: No Diabetes: No Other medical history: LUPUS - Immunization History Immunization Up to Date: Yes - Suicide/Smoking/Psychosocial Hx Smoking History: Never smoked Have you smoked in the past 12 months: No Number of Cigarettes Smoked Daily: 0 Information on smoking cessation initiated: No Hx Alcohol Use: No Drug/Substance Use Hx: No Substance Use Type: None *Physical Exam - Vital Signs Last Vital Signs Temp Pulse Resp BP Pulse Ox 98.2 F 82 18 114/79 100 03/01/17 09:35 03/01/17 09:35 03/01/17 09:35 03/01/17 09:35 03/01/17 09:35 ED Treatment Course - ADDITIONAL ORDERS Additional order review: Laboratory Results 03/01/17 10:00 Urine Color Lt. yellow Urine Appearance Clear Urine pH 5.5 Ur Specific [place] 1.025 Urine Protein Negative Urine Glucose (UA) Negative Urine Ketones Negative Urine Blood 3+ H Urine Nitrite Negative Urine Bilirubin Negative Urine Urobilinogen 0.2 Urine HCG, Qual Negative Medical Decision Making - Medical Decision Making 03/01/17 13:04 A/P: Patient here with dysuria, and patient states her urine was "mildly blood- tinged" no gross blood. Patient without back pain, states she has urinary tract infection the past and symptoms are the same. She is scheduled for gastric bypass on Tuesday, denies any new recent sexual activity no vaginal discharge no CVA tenderness. Laboratory Results - last 24 hr 03/01/17 10:00 Urine Color Lt. yellow Urine Appearance Clear Urine pH 5.5 Ur Specific [place] 1.025 Urine Protein Negative Urine Glucose (UA) Negative Urine Ketones Negative Urine Blood 3+ H Urine Nitrite Negative Urine Bilirubin Negative Urine Urobilinogen 0.2 Urine HCG, Qual Negative Patient with subjective data indicating a urinary tract infection there is no evidence of STD, no back pain or clinical evidence of kidney stone. I will DC patient on Macrobid with strict instructions to follow up with PMD for evaluation of blood in urine. She reports having appointment tomorrow for preop , we will discuss being placed on antibiotics and further evaluation, patient is afebrile in no acute distress. I discussed the physical exam findings, ancillary test results and final diagnoses with the patient. I answered all of the patient's questions. The patient was satisfied with the care received and felt comfortable with the discharge plan and treatment plan. The patient will call to arrange follow-up and will return to the Emergency Department with any new, persistent or worsening symptoms. *DC/Admit/Observation/Transfer Diagnosis at time of Disposition: Urinary tract infection Qualifiers: Urinary tract infection type: site unspecified Hematuria presence: with hematuria Qualified Code(s): N39.0 - Urinary tract infection, site not specified - Discharge Dispostion Disposition: HOME Condition at time of disposition: Good Admit: No - Prescriptions Prescriptions: Nitrofurantoin Monohyd/M-Cryst [Macrobid -] 100 mg PO BID #14 capsule - Referrals Referrals: Isis Acosta [Primary Care Provider] - - Patient Instructions Printed Discharge Instructions: Urinary Tract Infection Additional Instructions: There is blood noted in your urine, please follow up with your PMD. Please let the gastric surgeon know that you are on antibiotics prior to surgery. REturn to [facility] ER with any increased back pain or other concerns. - Post Discharge Activity Forms/Work/School Notes: Back to Work
[2017-03-01 13:33] LABS: URINE LEUK ESTERASE 1+ (NEGATIVE)
--- NOTE | 2017-03-03 07:38 | PDOC ---
Patient Follow-up (Call Back) - Post ED Follow - Up Condition at time of discharge: Good Disposition at time of original discharge: HOME Reason for Call Back: Abnwl. Microbiology (Patient with positive urine culture lactose fermenting negative bacilli still pending sensitivity as of 03/03/2017 at 7:36 AM. Patient is currently on Macrobid awaiting sensitivity)
== END 2017-03-01 12:27 | disposition home or self-care (01) ==
LOC: JERFT 09:29
DX: N39.0 Urinary tract infection, site not specified (principal)
CPT/HCPCS: 81003; 81015; 84703; 87086; 87186; 99281-25

== ENCOUNTER 2017-03-18 08:32 | Emergency (ER) | payer OTHER ==
--- NOTE | 2017-03-18 08:37 | PDOC ---
History of Present Illness - General Stated Complaint: ABD PAIN Time Seen by Provider: 03/18/17 08:36 - History of Present Illness Initial Comments: 03/18/17 08:48 Ms. Corrales is a 42 yo female w/ pmh of Asthma and Lupus who presents w/ severe abdominal pain following gastric bypass on March 08 (10 days ago). She reports the pain was remaining constant after surgery and so she called her surgeon 3 days ago who said this was expected, but presents as it is now getting worse. She has taken only tylenol (last at 0345 this AM) for the pain. She also reports minimal diarrhea lately but says that she has not been eating much besides soup. Additionally, she says she The patient denies chest pain, shortness of breath, headache and dizziness. Denies fever, chills, nausea, vomit, diarrhea and constipation. Denies dysuria, frequency, urgency and hematuria. Allergies: Gatifloxacin 03/18/17 08:57 Past History - Past Medical History Allergies/Adverse Reactions: Allergies Allergy/AdvReac Type Severity Reaction Status Date / Time gatifloxacin [From Tequin] Allergy Verified 03/18/17 08:55 Home Medications: Ambulatory Orders Docusate Sodium [Colace -] 0 mg PO DAILY 03/18/17 Docusate Sodium [Colace -] 100 mg PO DAILY #7 capsule 03/18/17 Enoxaparin [Lovenox -] 40 mg SQ DAILY 03/18/17 Multivitamin [Poly-Vitamin] 1 each PO DAILY 03/18/17 Simethicone [Gas-X] 125 mg PO DAILY #14 tab.chew 03/18/17 Asthma: Yes COPD: No Diabetes: No - Immunization History Immunization Up to Date: Yes - Suicide/Smoking/Psychosocial Hx Smoking History: Never smoked Have you smoked in the past 12 months: No Number of Cigarettes Smoked Daily: 0 Hx Alcohol Use: No Drug/Substance Use Hx: No Substance Use Type: None Review of Systems - Review of Systems Comments:: 03/18/17 08:49 GENERAL/CONSTITUTIONAL: No fever or chills. No weakness. HEAD, EYES, EARS, NOSE AND THROAT: No change in vision. No ear pain or discharge. No sore throat. CARDIOVASCULAR: No chest pain or shortness of breath RESPIRATORY: No cough, wheezing, or hemoptysis. GASTROINTESTINAL: No nausea, vomiting, diarrhea or constipation. GENITOURINARY: No dysuria, frequency, or change in urination. MUSCULOSKELETAL: No joint or muscle swelling or pain. No neck or back pain. SKIN: No rash NEUROLOGIC: No headache, vertigo, loss of consciousness, or change in strength/ sensation. ENDOCRINE: No increased thirst. No abnormal weight change HEMATOLOGIC/LYMPHATIC: No anemia, easy bleeding, or history of blood clots. ALLERGIC/IMMUNOLOGIC: No hives or skin allergy. *Physical Exam - Physical Exam Comments: 03/18/17 08:50 GENERAL: Awake, alert, and fully oriented, in no acute distress HEAD: No signs of trauma, normocephalic, atraumatic EYES: PERRLA, EOMI, sclera anicteric, conjunctiva clear ENT: Auricles normal inspection, hearing grossly normal, nares patent, oropharynx clear without exudates. Moist mucosa NECK: Normal ROM, supple, no lymphadenopathy, JVD, or masses LUNGS: No distress, speaks full sentences, clear to auscultation bilaterally HEART: Regular rate and rhythm, normal S1 and S2, no murmurs, rubs or gallops, peripheral pulses normal and equal bilaterally. ABDOMEN: Soft, nontender, normoactive bowel sounds. No guarding, no rebound. No masses EXTREMITIES: Normal inspection, Normal range of motion, no edema. No clubbing or cyanosis. NEUROLOGICAL: Cranial nerves II through XII grossly intact. Normal speech, normal gait, no focal sensorimotor deficits SKIN: Warm, Dry, normal turgor, no rashes or lesions noted. ED Treatment Course - LABORATORY CBC & Chemistry Diagram: 03/18/17 10:45 03/18/17 10:45 Medical Decision Making - Medical Decision Making 03/18/17 10:45 Began drinking Oral contrast at 10:45 03/18/17 18:08 Abdominal/Pelvis CT negative for acute pathology. Patient noted to have multiple leiomyomas in uterus w/ largest measuring 7.8x7.7. CT results discussed with Dr. Landry (bypass surgeon). Patient has appt for follow-up scheduled for Tuesday. Will d/c to home pending UA results. 03/18/17 19:08 UA negative for UTI. Will d/c to home w/ instructions to follow-up w/ surgeon on tuesday. Patient verbalized understanding. *DC/Admit/Observation/Transfer Diagnosis at time of Disposition: Abdominal pain - Discharge Dispostion Disposition: HOME - Prescriptions Prescriptions: Docusate Sodium [Colace -] 100 mg PO DAILY #7 capsule Simethicone [Gas-X] 125 mg PO DAILY #14 tab.chew - Referrals Referrals: Isis Acosta [Primary Care Provider] - - Patient Instructions - Post Discharge Activity
[2017-03-18 08:45] VITALS: TEMP 97.9; BMI 37.8
--- NOTE | 2017-03-18 08:48 | PDOC ---
Attending Attestation - Resident Resident Name: Juan Antonio Gross - HPI HPI: 03/18/17 16:21 pt presents to the ED complaining of abdominal pain for the last three days. Denies fever, nausea or vomiting. Denies urinary complaints. Recent history of gastric bypass 10 days ago. Patient spoke to her surgeon who suggested that she present to the ED,. - Physicial Exam PE: 03/18/17 16:32 Agree with resident's exam. Incisions are clean and dry with steri strips in place. Abdomen is mildly tender to deep palpation. - Medical Decision Making 03/18/17 16:35 Pt presents to the ED complaining of diffuse abdominal pain [address] abdomen pelvis checked to rule out obstruction, leakage of gastric contents or abscess. CT is negative and patient feels improved. Will discharge home.
[2017-03-18] MEDS ORDERED: morphine CARPU-JECT 4 MG/1 ML DISP.SYRIN IVPUSH ONE (10:07)
[2017-03-18 11:01] LABS: BASO % 1.2 % (0-2.0); EOS % 2.5 % (0-4.5); HEMATOCRIT 36.8 % (32.4-45.2); HEMOGLOBIN 11.8 GM/dL (10.7-15.3); LYMPH % 18.5 % (8-40); MCH 26.4 pg (25.7-33.7); MCHC 32.1 g/dl (32.0-36.0); MEAN CELL VOLUME 82.3 fl (80-96); MEAN PLT VOLUME 9.9 fl (7.5-11.1); MONO % 11.2 % (3.8-10.2); NEUT % 66.6 % (42.8-82.8); PLATELET COUNT 214 K/MM3 (134-434); RBC 4.47 M/mm3 (3.60-5.2); RDW 15.5 % (11.6-15.6); WHITE BLOOD COUNT 8.4 K/mm3 (4.0-10.0)
[2017-03-18 11:18] LABS: ALBUMIN 3.4 g/dl (3.4-5.0); ALK PHOS 79 U/L (45-117); ANION GAP 11 (8-16); BILIRUBIN,TOTAL 0.7 mg/dL (0.2-1.0); BLOOD UREA NITROGEN 23 mg/dL (7-18); CALCIUM 8.8 mg/dL (8.5-10.1); CHLORIDE 105 mmol/L (98-107); CO2 20 mmol/L (21-32); CREATININE 0.7 mg/dL (0.55-1.02); GLUCOSE,RANDOM 80 mg/dL (74-106); SGOT/AST 16 U/L (15-37); SGPT/ALT 26 U/L (12-78); SODIUM 136 mmol/L (136-145); TOT PROT 8.5 g/dl (6.4-8.2)
[2017-03-18 11:20] LABS: LIPASE 290 U/L (73-393)
[2017-03-18 11:26] LABS: INR 1.39 (0.82-1.09); PROTHROMBIN TIME (PATIENT) 15.7 SEC (9.98-11.88)
[2017-03-18 11:29] LABS: ACTIVATED PTT 35.3 SECONDS (26.9-34.4)
[2017-03-18] MEDS ORDERED: KETOROLAC TROMETHAMINE 15 MG/ML VIAL IVPUSH ONE (15:50)
[2017-03-18] MEDS ORDERED: SODIUM CHLORIDE 1,000 ML IV STA (15:50)
[2017-03-18 18:25] VITALS: BP 132/78; PULSE 80
[2017-03-18 18:39] LABS: URINE APPEARANCE CLEAR; URINE BILIRUBIN NEGATIVE (NEGATIVE); URINE BLOOD 2+ (NEGATIVE); URINE COLOR YELLOW; URINE GLUCOSE (UA) NEGATIVE (NEGATIVE); URINE KETONE 2+ (NEGATIVE)
[2017-03-18 18:40] LABS: URINE LEUK ESTERASE NEGATIVE (NEGATIVE); URINE NITRITE NEGATIVE (NEGATIVE); URINE PROTEIN NEGATIVE (NEGATIVE); URINE UROBILINOGEN NORMAL mg/dL (0.2-1.0)
[2017-03-18] MEDS ORDERED: DOCUSATE SODIUM 100 MG CAPSULE (FP) PO ONE ×2 (18:48→19:14)
[2017-03-18 18:56] LABS: EPI CELLS RARE /HPF (FEW); URINE BACTERIA RARE /hpf (NONE SEEN)
[2017-03-18 18:57] LABS: URINE MUCUS RARE
== END 2017-03-18 20:29 | disposition home or self-care (01) ==
LOC: JER 08:32
PROC: 3E0333Z Introduction of Anti-inflammatory into Peripheral Vein, Percutaneous Approach (ICD-10-PCS; principal; 2017-03-18)
PROC: 3E033NZ Introduction of Analgesics, Hypnotics, Sedatives into Peripheral Vein, Percutaneous Approach (ICD-10-PCS; 2017-03-18)
PROC: 3E0337Z Introduction of Electrolytic and Water Balance Substance into Peripheral Vein, Percutaneous Approach (ICD-10-PCS; 2017-03-18)
DX: R10.9 Unspecified abdominal pain (principal); Z98.890 Other specified postprocedural states; M32.9 Systemic lupus erythematosus, unspecified; J45.909 Unspecified asthma, uncomplicated
CPT/HCPCS: 36415; 74177-TC; 80053; 81003; 81015; 83690; 84703; 85025; 85610; 85730; 86850; 86870; 86900; 86901; 86902; 96361; 96374; 96375; 99283-25; Q9967

== ENCOUNTER 2017-04-02 20:45 | Emergency (ER) | payer OTHER ==
[2017-04-02 21:08] VITALS: BP 131/86; PULSE 89; TEMP 98; BMI 37.9
[2017-04-02] MEDS ORDERED: ONDANSETRON 4 MG/2 ML VIAL IVPUSH ONE (21:25)
[2017-04-02] MEDS ORDERED: SODIUM CHLORIDE 1,000 ML IV STA ×2 (21:25→23:04)
[2017-04-02] MEDS ORDERED: METOCLOPRAMIDE HCL INJECTION 10 MG/2 ML VIAL IVPUSH ONE (21:29)
[2017-04-02] MEDS ORDERED: FAMOTIDINE 20 MG/50 ML IVPB 20 MG/50 ML MG IVPB ONE (21:50)
[2017-04-02] MEDS ORDERED: METOCLOPRAMIDE HCL INJECTION 10 MG/2 ML VIAL ONE (21:50)
--- NOTE | 2017-04-02 21:51 | PDOC ---
History of Present Illness - General Chief Complaint: Weakness Stated Complaint: DIZZINESS Time Seen by Provider: 04/02/17 21:05 History Source: Patient Exam Limitations: No Limitations - History of Present Illness Initial Comments: 04/02/17 21:41 Patient is a 42F with history of asthma, lupus, and bariatric surgery on here today complaining of nausea, generalized weakness, headache and decreased PO intake for the past two days. She describes this as a continuation of a difficult post-op course. She denies vomiting, fevers, chills, abdominal pain, constipation, diarrhea. She had a negative abdominal workup with CT on 03/18. Denies chest pain, shortness of breath. The headache insidiously onset, and is located from the posterior aspect of her head radiating to her forehead. Past History - Past Medical History Allergies/Adverse Reactions: Allergies Allergy/AdvReac Type Severity Reaction Status Date / Time gatifloxacin [From Tequin] Allergy Verified 03/18/17 08:55 Home Medications: Ambulatory Orders Docusate Sodium [Colace -] 100 mg PO DAILY #7 capsule 03/18/17 Simethicone [Gas-X] 125 mg PO DAILY #14 tab.chew 03/18/17 Ondansetron [Zofran *Odt*] 8 mg SL BID PRN #10 od.tablet 04/03/17 Asthma: Yes COPD: No Diabetes: No - Surgical History Abdominal Surgery: Yes Gastric Stapling: (GASTRIC BYPASS: 03/08/17) - Immunization History Immunization Up to Date: Yes - Suicide/Smoking/Psychosocial Hx Smoking History: Never smoked Have you smoked in the past 12 months: No Number of Cigarettes Smoked Daily: 0 If you are a former smoker, when did you quit?: 03/05/17 Hx Alcohol Use: No Drug/Substance Use Hx: No Substance Use Type: None Review of Systems - Review of Systems Comments:: 04/02/17 21:53 GENERAL/CONSTITUTIONAL: No fever or chills. Positive for generalized weakness. HEAD, EYES, EARS, NOSE AND THROAT: No change in vision. No sore throat. CARDIOVASCULAR: No chest pain or shortness of breath RESPIRATORY: No cough, wheezing, or hemoptysis. GASTROINTESTINAL: Positive for nausea. Negative for vomiting, diarrhea or constipation. GENITOURINARY: No dysuria, frequency, or change in urination. SKIN: No rash NEUROLOGIC: Positive for headache. Negative for vertigo, loss of consciousness, or change in strength/sensation. ENDOCRINE: No increased thirst. No abnormal weight change HEMATOLOGIC/LYMPHATIC: No anemia, easy bleeding, or history of blood clots. *Physical Exam - Vital Signs Last Vital Signs Temp Pulse Resp BP Pulse Ox 98 F 89 20 131/86 99 04/02/17 21:05 04/02/17 21:05 04/02/17 21:05 04/02/17 21:05 04/02/17 21:05 - Physical Exam Comments: 04/02/17 21:54 GENERAL: Awake, alert, and fully oriented, in no acute distress HEAD: No signs of trauma, normocephalic, atraumatic EYES: PERRLA, EOMI, sclera anicteric, conjunctiva clear ENT: Auricles normal inspection, hearing grossly normal, nares patent, oropharynx clear without exudates. Dry mucosa LUNGS: No distress, speaks full sentences, clear to auscultation bilaterally HEART: Regular rate and rhythm, normal S1 and S2, no murmurs, rubs or gallops, peripheral pulses normal and equal bilaterally. ABDOMEN: Soft, nontender, normoactive bowel sounds. No guarding, no rebound. No masses EXTREMITIES: Normal inspection, Normal range of motion, no edema. No clubbing or cyanosis. NEUROLOGICAL: Cranial nerves II through XII grossly intact. Normal speech, no focal sensorimotor deficits SKIN: Warm, Dry, normal turgor, no rashes or lesions noted. ED Treatment Course - LABORATORY CBC & Chemistry Diagram: 04/02/17 22:00 04/02/17 22:00 Medical Decision Making - Medical Decision Making 04/02/17 21:54 Patient is a 42F with history of lupus, asthma, and bariatric surgery (03/08/17 ) here today with headache and nausea. Suspicious that she is mildly dehyrdated. Will treat with reglan, pepcid, fluids. Will evaluate with basic labs. Call placed to her surgeon. 04/02/17 23:00 Laboratory Tests 04/02/17 04/02/17 04/02/17 22:00 22:00 22:30 WBC 6.7 Hgb 11.1 Hct 34.9 Plt Count 172 BUN 23 H Creatinine 0.7 Creat Clearance w eGFR > 60 Lipase 189 Urine Ketones 2+ H Urine Blood 2+ H CBC normal. CMP shows normal kidney function, otherwise unremarkable. Lipase negative. UA shows no signs of infection. Cell counts pending. Upreg negative. 04/02/17 23:47 UA shows moderate epithelial cells. Patient's headache is improved. Will discharge with zofran, return precautions, and instructions to call physician on Tuesday to move up appointment from April to next week. 04/02/17 23:59 Upon giving discharge instructions, patient reported that her headache was back. Will give toradol and discharge. *DC/Admit/Observation/Transfer Diagnosis at time of Disposition: Nausea - Discharge Dispostion Disposition: HOME Condition at time of disposition: Good Admit: No - Prescriptions Prescriptions: Ondansetron [Zofran *Odt*] 8 mg SL BID PRN #10 od.tablet PRN Reason: Nausea - Referrals - Patient Instructions Printed Discharge Instructions: DI for Nausea -- Adult Additional Instructions: Please follow up with your surgeon next week. Please return if you have any new , worsening, or concerning symptoms. - Post Discharge Activity Forms/Work/School Notes: Back to Work
[2017-04-02 22:19] LABS: BASO # 0.1 # (0.1-1); BASO % 1.2 % (0-2.0); EOS # 0.2 # (0-4.5); EOS % 3.2 % (0-4.5); LYMPH # 1.7 (8-40); MCHC 31.8 g/dl (32.0-36.0); MEAN CELL VOLUME 81.6 fl (80-96); MEAN PLT VOLUME 11.1 fl (7.5-11.1); MONO # 0.8 # (3.8-10.2); NEUT # 3.8 # (42.8-82.8); NEUT % 57.2 % (42.8-82.8); PLATELET COUNT 172 K/MM3 (134-434); WHITE BLOOD COUNT 6.7 K/mm3 (4.0-10.0)
[2017-04-02] MEDS ORDERED: FAMOTIDINE IV 20 MG/12 ML VIAL IVPUSH ONE (22:30)
[2017-04-02 22:43] LABS: ALBUMIN 3.3 g/dl (3.4-5.0); ALK PHOS 69 U/L (45-117); ANION GAP 14 (8-16); BILIRUBIN,TOTAL 0.5 mg/dL (0.2-1.0); CALCIUM 8.6 mg/dL (8.5-10.1); CO2 22 mmol/L (21-32); CREATININE 0.7 mg/dL (0.55-1.02); GLUCOSE,RANDOM 75 mg/dL (74-106); SGPT/ALT 31 U/L (12-78); TOT PROT 8.1 g/dl (6.4-8.2)
[2017-04-02 22:44] LABS: SGOT/AST 31 U/L (15-37)
[2017-04-02 22:45] LABS: URINE APPEARANCE SLCLOUDY; URINE BILIRUBIN NEGATIVE (NEGATIVE); URINE BLOOD 2+ (NEGATIVE); URINE COLOR DKYELLOW; URINE GLUCOSE (UA) NEGATIVE (NEGATIVE); URINE KETONE 2+ (NEGATIVE); URINE NITRITE NEGATIVE (NEGATIVE)
[2017-04-02 22:48] LABS: URINE LEUK ESTERASE 1+ (NEGATIVE); URINE PROTEIN 2+ (NEGATIVE)
--- NOTE | 2017-04-02 23:04 | PDOC ---
Attending Attestation - Resident Resident Name: Jose Juan Gomez - ED Attending Attestation I have performed the following: I have examined & evaluated the patient, The case was reviewed & discussed with the resident, I agree w/resident's findings & plan - HPI HPI: 04/03/17 06:55 Pt comes with dehydration, she recently had stomach stapling surg and she is unable to eat/drink normal amounts of food. Otherwise exam is normal and pt appears well. - Physicial Exam PE: 04/03/17 06:53 Agree with resident exam - Medical Decision Making 04/03/17 06:54 Pt's labs are normal and pt is stable for discharge home. 04/03/17 06:56 Vastly improved with hydration.
[2017-04-02 23:07] LABS: URINE BACTERIA RARE /hpf (NONE SEEN); URINE HYALINE CAST 17 /lpf; URINE MUCUS MANY; URINE RBC 3 /hpf (0-3); URINE WBC 3 /hpf (3-5)
[2017-04-03] MEDS ORDERED: KETOROLAC TROMETHAMINE 30 MG/1 ML VIAL IVPUSH ONE
[2017-04-03] MEDS ORDERED: KETOROLAC TROMETHAMINE 30 MG/1 ML VIAL ONE (00:16)
[2017-04-03 14:29] LABS: URINE LEUK ESTERASE Negative (NEGATIVE)
--- NOTE | 2017-04-03 17:12 | EKG ---
Test Reason : Blood Pressure : / mmHG Vent. Rate : 065 BPM Atrial Rate : 065 BPM P-R Int : 180 ms QRS Dur : 086 ms QT Int : 426 ms P-R-T Axes : 054 017 040 degrees QTc Int : 443 ms NORMAL SINUS RHYTHM WITH SINUS ARRHYTHMIA NORMAL ECG NO PREVIOUS ECGS AVAILABLE Confirmed by JAXON MEDINA MD ([id number]) on 04/03/2017 5:12:38 PM Referred By: Confirmed By:JAXON MEDINA MD
== END 2017-04-03 01:00 | disposition home or self-care (01) ==
LOC: JER 20:45
PROC: 3E033GC Introduction of Other Therapeutic Substance into Peripheral Vein, Percutaneous Approach (ICD-10-PCS; principal; 2017-04-02)
PROC: 3E033GC Introduction of Other Therapeutic Substance into Peripheral Vein, Percutaneous Approach (ICD-10-PCS; 2017-04-02)
PROC: 3E033GC Introduction of Other Therapeutic Substance into Peripheral Vein, Percutaneous Approach (ICD-10-PCS; 2017-04-02)
DX: R11.0 Nausea (principal); Z98.84 Bariatric surgery status; J45.909 Unspecified asthma, uncomplicated; M32.9 Systemic lupus erythematosus, unspecified
CPT/HCPCS: 36415; 80053; 81003; 81015; 83690; 84703; 85025; 93005; 93010; 99281-25

== ENCOUNTER 2017-04-19 21:31 | Emergency (ER) | payer OTHER ==
[2017-04-19 21:37] VITALS: TEMP 98.4; BMI 36.8
--- NOTE | 2017-04-19 21:39 | PDOC ---
Rapid Medical Evaluation Chief Complaint: Chest Pain Time Seen by Provider: 04/19/17 21:33 Medical Evaluation: Allergies Allergy/AdvReac Type Severity Reaction Status Date / Time gatifloxacin [From Tequin] Allergy Verified 04/19/17 21:33 04/19/17 21:34 cc: LEFT SIDED CHEST PAIN TO LEFT ARM SINCE TONIGHT. pain 12/19 history : gastric bypass 02/2017, asthma, SLE pe: Patient ox3. breath sounds clear. + chest tenderness on palpation.s Plan: CBC, EKG, cmp, cardiac enzymes. aspirin given by EMS
--- NOTE | 2017-04-19 21:51 | PDOC ---
History of Present Illness - General Exam Limitations: No Limitations - History of Present Illness Initial Comments: 04/19/17 21:59 The patient is a 42 year old female, with a significant past medical history of lupus (not on steroids), who presents to the emergency department with, left sided chest pain beginning this morning. The patient states the left sided chest pain has been progressively worse since onset and radiates down the left arm. Patient states the left sided chest pain is 9/10. She reports the only potential heavy lifting has been her 2 yr. old granddaughter who she lifts regularly. Patient states she has not taken any medications for the pain. Patient denies any recent fever, nausea, vomit or diarrhea. Patient denies shortness of breath. Patient denies recent travel and hormone therapy. Allergies: gatifloxacin . PCP: Dr. Isis Acosta <Dani Madden - Last Filed: 04/19/17 22:54> - General History Source: Patient <Zeke Stark - Last Filed: 04/19/17 23:30> - General Chief Complaint: Chest Pain Stated Complaint: ABD PAIN Time Seen by Provider: 04/19/17 21:33 Past History <Dani Madden - Last Filed: 04/19/17 22:54> - Past Medical History Asthma: Yes COPD: No Diabetes: No Other medical history: lupus - Surgical History Abdominal Surgery: Yes Gastric Stapling: (GASTRIC BYPASS: 03/08/17) - Immunization History Immunization Up to Date: Yes - Suicide/Smoking/Psychosocial Hx Smoking History: Never smoked Have you smoked in the past 12 months: No Number of Cigarettes Smoked Daily: 0 If you are a former smoker, when did you quit?: 03/05/17 Hx Alcohol Use: No Drug/Substance Use Hx: No Substance Use Type: None <Zeke Stark - Last Filed: 04/19/17 23:30> - Past Medical History Allergies/Adverse Reactions: Allergies Allergy/AdvReac Type Severity Reaction Status Date / Time gatifloxacin [From Tequin] Allergy Verified 04/19/17 21:33 Home Medications: Ambulatory Orders Docusate Sodium [Colace -] 100 mg PO DAILY #7 capsule 03/18/17 Simethicone [Gas-X] 125 mg PO DAILY #14 tab.chew 03/18/17 Ondansetron [Zofran *Odt*] 8 mg SL BID PRN #10 od.tablet 04/03/17 Ibuprofen 800 mg PO TID #30 tablet 04/19/17 Methocarbamol [Robaxin -] 1,000 mg PO TID #40 tablet 04/19/17 Review of Systems - Review of Systems Comments:: 04/19/17 21:59 CONSTITUTIONAL: Absent: fever, no chills, no fatigue EYES: Absent: visual changes ENT: Absent: ear pain, no sore throat CARDIOVASCULAR: Present: +Chest pain Absent: no palpitations RESPIRATORY: Absent: cough, no SOB GI: Absent: abdominal pain, no nausea, no vomiting, no constipation, no diarrhea GENITOURINARY: Absent: dysuria, no frequency, no hematuria MUSKULOSKELETAL: Absent: back pain, no arthralgia, no myalgia SKIN: Absent: rash NEURO: Absent: headache <Dani Madden - Last Filed: 04/19/17 22:54> *Physical Exam - Vital Signs Last Vital Signs Temp Pulse Resp BP Pulse Ox 98.4 F 82 20 114/76 100 04/19/17 21:34 04/19/17 21:34 04/19/17 21:34 04/19/17 21:34 04/19/17 21:34 - Physical Exam Comments: 04/19/17 22:00 GENERAL: +Mild distress. Well-appearing, well-nourished. HEENT: Normocephalic, atraumatic. PERRL, EOM intact. CHEST WALL: +Mild chest wall tenderness left upper chest region. CARDIOVASCULAR: Normal S1, S2. Regular rate and rhythm. PULMONARY: Clear to auscultation bilaterally. ABDOMEN: +Obese. Soft, non-distended, non-tender. EXTREMITIES: Normal ROM in all four extremities. No gross deformities. SKIN: Warm, dry. No rash NEUROLOGICAL: No focal neurological deficits. <Dani Madden - Last Filed: 04/19/17 22:54> - Vital Signs Last Vital Signs Temp Pulse Resp BP Pulse Ox 98.4 F 82 20 114/76 100 04/19/17 21:34 04/19/17 21:34 04/19/17 21:34 04/19/17 21:34 04/19/17 21:34 <Zeke Stark - Last Filed: 04/19/17 23:30> Heart Score/ECG Review #1 04/19/17 22:16 Normal Sinus Rhythm at 78 bpm. QT/QTc 386/440 ms <Dani Madden - Last Filed: 04/19/17 22:54> ED Treatment Course - LABORATORY CBC & Chemistry Diagram: 04/19/17 21:46 04/19/17 21:46 <Dani Madden - Last Filed: 04/19/17 22:54> - LABORATORY CBC & Chemistry Diagram: 04/19/17 21:46 04/19/17 21:46 <Zeke Stark - Last Filed: 04/19/17 23:30> Medical Decision Making - Medical Decision Making 04/19/17 23:28 Dr. Stark: The scribe's documentation has been prepared under my direction and personally reviewed by me in its entirery. I confirm that the note above accurately reflects all work, treatment, procedures, and medical decision making performed by me. patient feels better after IV Toradol. cardiac enzyme is negative. EKG stable. Patient will be discharged to follow-up with her primary care physician. Advised to return if symptoms don't with anti-inflammatory and muscle relaxants <Zeke Stark - Last Filed: 04/19/17 23:30> *DC/Admit/Observation/Transfer - Attestations Scribe Attestion: 04/19/17 22:02 Documentation prepared by Dani Madden, acting as biomedical service engineer for Zeke tSark MD. <Dani Madden - Last Filed: 04/19/17 22:54> - Discharge Dispostion Admit: No <Zeke Stark - Last Filed: 04/19/17 23:30> Diagnosis at time of Disposition: Chest wall pain - Discharge Dispostion Disposition: HOME Condition at time of disposition: Stable - Prescriptions Prescriptions: Ibuprofen 800 mg PO TID #30 tablet Methocarbamol [Robaxin -] 1,000 mg PO TID #40 tablet - Referrals Referrals: Isis Acosta [Primary Care Provider] - Jorge Santillan MD [Staff Physician] - - Patient Instructions Printed Discharge Instructions: DI for Chest Pain Additional Instructions: Take medication as directed.. Follow up with your doctor for re-evaluation by Tuesday. Return if any problems.
[2017-04-19 21:52] LABS: BASO % 0.7 % (0-2.0); EOS % 3.5 % (0-4.5); HEMATOCRIT 34.3 % (32.4-45.2); LYMPH % 29.8 % (8-40); MCH 26.4 pg (25.7-33.7); MCHC 32.1 g/dl (32.0-36.0); MEAN CELL VOLUME 82.1 fl (80-96); MEAN PLT VOLUME 9.5 fl (7.5-11.1); MONO % 12.1 % (3.8-10.2); NEUT % 53.9 % (42.8-82.8); PLATELET COUNT 131 K/MM3 (134-434); RBC 4.17 M/mm3 (3.60-5.2); RDW 17.5 % (11.6-15.6); WHITE BLOOD COUNT 4.4 K/mm3 (4.0-10.0)
[2017-04-19] MEDS ORDERED: KETOROLAC TROMETHAMINE 30 MG/1 ML VIAL IVPUSH ONE (21:53)
[2017-04-19 22:20] LABS: INR 1.42 (0.82-1.09)
[2017-04-19 22:31] LABS: ANION GAP 10 (8-16); BILIRUBIN,TOTAL 0.7 mg/dL (0.2-1.0); BLOOD UREA NITROGEN 9 mg/dL (7-18); CALCIUM 7.9 mg/dL (8.5-10.1); CHLORIDE 104 mmol/L (98-107); CO2 24 mmol/L (21-32); CREATININE 0.5 mg/dL (0.55-1.02); GLUCOSE,RANDOM 77 mg/dL (74-106); MAGNESIUM 1.4 mg/dL (1.8-2.4); POTASSIUM 3.5 mmol/L (3.5-5.1); SGOT/AST 15 U/L (15-37); SGPT/ALT 18 U/L (12-78); SODIUM 138 mmol/L (136-145)
[2017-04-19 22:34] LABS: ALK PHOS 54 U/L (45-117)
[2017-04-19] MEDS ORDERED: METHOCARBAMOL 500 MG TABLET PO ONE (23:24)
[2017-04-19 23:50] VITALS: BP 116/72; PULSE 80
--- NOTE | 2017-04-20 09:34 | EKG ---
Test Reason : Blood Pressure : / mmHG Vent. Rate : 078 BPM Atrial Rate : 078 BPM P-R Int : 150 ms QRS Dur : 072 ms QT Int : 386 ms P-R-T Axes : -13 -11 019 degrees QTc Int : 440 ms NORMAL SINUS RHYTHM LOW VOLTAGE QRS BORDERLINE ECG WHEN COMPARED WITH ECG OF 02-APR-2017 23:01, NO SIGNIFICANT CHANGE WAS FOUND Confirmed by RADHA GUZMÁN, RIMMA ([id number]) on 04/20/2017 9:33:42 AM Referred By: Confirmed By:RIMMA GARCIA MD
== END 2017-04-19 23:50 | disposition home or self-care (01) ==
LOC: JER 21:31
PROC: 3E0333Z Introduction of Anti-inflammatory into Peripheral Vein, Percutaneous Approach (ICD-10-PCS; principal; 2017-04-19)
DX: R07.89 Other chest pain (principal)
CPT/HCPCS: 36415; 71046-TC; 80053; 82550; 83735; 84484; 84703; 85025; 85610; 93005; 93010; 96374; 99283-25

== ENCOUNTER 2017-06-06 13:48 | Emergency (ER) | payer OTHER ==
[2017-06-06 14:06] VITALS: BP 117/76; PULSE 87; TEMP 98; BMI 34.3
[2017-06-06] MEDS ORDERED: predniSONE 20 MG TABLET (UD) PO ONE (15:07)
[2017-06-06] MEDS ORDERED: ALBUTEROL SO4 2.5/IPRATROPIUM 0.5 INH SOL 3 ML VIAL.NEB. NEB ONE ×2 (15:07→15:08)
--- NOTE | 2017-06-06 15:07 | PDOC ---
History of Present Illness - General Chief Complaint: Cold Symptoms Stated Complaint: CHEST PAIN, BODYACHES Time Seen by Provider: 06/06/17 14:20 History Source: Patient Exam Limitations: No Limitations - History of Present Illness Initial Comments: 06/06/17 15:02 Complaints of cough, chills, fevers, sore throat pain 3-1/2 4 days. States is been using mxwl-gkj-hyfieiu medication but loss the tubing for her air compressor for her asthma treatments at home. Timing/Duration: reports: getting worse Severity: reports: mild, moderate Past History - Travel Traveled outside of the country in the last 30 days: No Close contact w/someone who was outside of country & ill: No - Past Medical History Allergies/Adverse Reactions: Allergies Allergy/AdvReac Type Severity Reaction Status Date / Time gatifloxacin [From Tequin] Allergy Verified 06/06/17 14:03 Home Medications: Ambulatory Orders Albuterol 0.083% Nebulizer Mattie [Ventolin 0.083% Nebulizer Soln -] 1 neb NEB Q4H PRN #30 vial 06/06/17 predniSONE [Deltasone -] 20 mg PO BID #8 tablet 06/06/17 Asthma: Yes COPD: No Diabetes: No - Surgical History Abdominal Surgery: Yes Gastric Stapling: (GASTRIC BYPASS: 03/08/17) - Immunization History Immunization Up to Date: Yes - Suicide/Smoking/Psychosocial Hx Smoking History: Never smoked Have you smoked in the past 12 months: No Number of Cigarettes Smoked Daily: 0 If you are a former smoker, when did you quit?: 03/05/17 Information on smoking cessation initiated: No Hx Alcohol Use: No Drug/Substance Use Hx: No Substance Use Type: None Respiratory Specific PMHX - Complaint Specific PMHX Angina: No Bronchitis: Yes Pulmonary Embolus: No TB (Tuberculosis): No Review of Systems - Review of Systems Able to Perform ROS?: Yes Is the patient limited Italian proficient: Yes Constitutional: Yes: Symptoms Reported, See HPI, Chills, Fever, Malaise HEENTM: Yes: Symptoms Reported, Nose Congestion, Throat Pain Respiratory: Yes: Symptoms reported, See HPI, Cough, Wheezing Integumentary: No: Symptoms Reported All Other Systems: Reviewed and Negative *Physical Exam - Vital Signs Last Vital Signs Temp Pulse Resp BP Pulse Ox 98.0 F 87 18 117/76 100 06/06/17 14:03 06/06/17 14:03 06/06/17 14:03 06/06/17 14:03 06/06/17 14:03 - Physical Exam General Appearance: Yes: Nourished, Appropriately Dressed, Apparent Distress HEENT: positive: EOMI, MARNIE, Normal ENT Inspection, TMs Normal, Nasal Congestion , Rhinorrhea. negative: Pharyngeal Erythema Neck: positive: Tender (ingestion but landmarks easily visualized), Supple, Lymphadenopathy (R), Lymphadenopathy (L) Respiratory/Chest: positive: Decreased Breath Sounds, Wheezing. negative: Lungs Clear, Normal Breath Sounds Gastrointestinal/Abdominal: positive: Normal Bowel Sounds, Soft. 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 We'll treat with nebulizers and prednisone. Patient outside window for Tamiflu administration Medical Decision Making - Medical Decision Making 06/06/17 15:56 Much improved after second DuoNeb, airways much clear, patient feels better evaluation. We will discharge *DC/Admit/Observation/Transfer Diagnosis at time of Disposition: Upper respiratory infection, viral - Discharge Dispostion Disposition: HOME Condition at time of disposition: Stable Admit: No - Prescriptions Prescriptions: Albuterol 0.083% Nebulizer Mattie [Ventolin 0.083% Nebulizer Soln -] 1 neb NEB Q4H PRN #30 vial PRN Reason: Cough predniSONE [Deltasone -] 20 mg PO BID #8 tablet - Referrals Referrals: Isis Acosta [Primary Care Provider] - - Patient Instructions Printed Discharge Instructions: DI for Viral Upper Respiratory Infection -- Adult Additional Instructions: Rest, drink lots of fluids: Teas, water, soups, Pedialyte Saltwater gargles Steamy showers/seem to face break up mucus Avoid contact with others until fevers and cough resolved Lots of handwashing and good hygiene Continue [id number] medications for symptomatic relief Tylenol or Motrin for fever and pain Continue albuterol nebulizers every 4-6 hours for the next 2 days then as needed for continued cough Prednisone as directed until completed Followup with private physician in one to 2 days Return to emergency department / pediatric hospital for worsened symptoms, fevers, dehydration - Post Discharge Activity Forms/Work/School Notes: Back to Work
[2017-06-06] MEDS ORDERED: predniSONE 20 MG TABLET (UD) ONE (15:08)
--- NOTE | 2017-06-11 11:53 | EKG ---
Test Reason : Blood Pressure : / mmHG Vent. Rate : 089 BPM Atrial Rate : 089 BPM P-R Int : 174 ms QRS Dur : 078 ms QT Int : 376 ms P-R-T Axes : 053 004 029 degrees QTc Int : 457 ms NORMAL SINUS RHYTHM POSSIBLE LEFT ATRIAL ENLARGEMENT BORDERLINE ECG WHEN COMPARED WITH ECG OF 19-APR-2017 22:10, NO SIGNIFICANT CHANGE WAS FOUND Confirmed by MD FERNANDA, KAREL ([id number]) on 06/11/2017 11:53:05 AM Referred By: Confirmed By:KAREL MICHAEL MD
== END 2017-06-06 16:03 | disposition home or self-care (01) ==
LOC: JERFT 13:48 → JER 13:48 → JERFT 16:03
PROC: 3E0F7GC Introduction of Other Therapeutic Substance into Respiratory Tract, Via Natural or Artificial Opening (ICD-10-PCS; principal; 2017-06-06)
DX: J06.9 Acute upper respiratory infection, unspecified (principal); B97.89 Other viral agents as the cause of diseases classified elsewhere; Z98.84 Bariatric surgery status
CPT/HCPCS: 93005; 93010; 94640; 99281-25